=== PATIENT | male | born 1965 | race Two or more races ===

== ENCOUNTER → 2024-09-24 | Outpatient (CLI) | payer MEDICAID, SELFPAY ==
--- NOTE | 2024-09-24 15:26 | XR_ITS ---
Indication: Thoracic spine 3 views Technique one AP lateral coned lateral upper dorsal spine 3 views Date and time: September 24, 2024, 1537 hours INDICATIONS: Back pain beginning 3 years ago. FINDINGS: Adequate alignment thoracic vertebral bodies Mild diffuse thoracic degenerative disc disease Moderate thoracic spondylosis IMPRESSION: Mild diffuse thoracic degenerative disc disease
--- NOTE | 2024-09-24 15:26 | XR_ITS ---
Examination: PA lateral chest 2 views TECHNIQUE: Upright PA lateral chest 2 views Date and time: September 24, 2024 1534 hours INDICATIONS: Wheezing chest pain beginning one year ago. FINDINGS: Normal heart size Lungs are clear. The osseous structures are intact IMPRESSION: No active disease
== END | disposition home or self-care (01) ==
PROVIDERS: PCP Registered Nurse Community Health; Referring Provider Registered Nurse Community Health; Visit Provider Registered Nurse Community Health
DX: R06.2 Wheezing (principal); R07.1 Chest pain on breathing; M51.34 Other intervertebral disc degeneration, thoracic region
CPT/HCPCS: 71046; 72072